=== PATIENT | female | born 2000 | race Caucasian/White ===

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

== ENCOUNTER → 2020-01-02 14:20 | Outpatient (BNVA) | payer MEDICAID, SELFPAY | PROVIDERS: Family Provider Nurse Practitioner; PCP Nurse Practitioner; Visit Provider Obstetrics & Gynecology | DX: O36.0990 Maternal care for other rhesus isoimmunization, unspecified trimester, not applicable or unspecified (principal); O99.340 Other mental disorders complicating pregnancy, unspecified trimester | CPT/HCPCS: 81003; 85027; 86850 ==

== ENCOUNTER → 2020-01-17 13:51 | Outpatient (BNVA) | payer MEDICAID, SELFPAY | PROVIDERS: Family Provider Nurse Practitioner; PCP Nurse Practitioner; Visit Provider Obstetrics & Gynecology | DX: Z01.89 Encounter for other specified special examinations (principal) | CPT/HCPCS: 84315 ==

== ENCOUNTER → 2020-02-03 14:24 | Outpatient (BNVA) | payer MEDICAID, SELFPAY | PROVIDERS: Family Provider Nurse Practitioner; PCP Nurse Practitioner; Visit Provider Obstetrics & Gynecology | DX: O09.893 Supervision of other high risk pregnancies, third trimester (principal); O99.343 Other mental disorders complicating pregnancy, third trimester; O26.893 Other specified pregnancy related conditions, third trimester; Z67.91 Unspecified blood type, Rh negative; O99.89 Other specified diseases and conditions complicating pregnancy, childbirth and the puerperium; R82.71 Bacteriuria; O99.013 Anemia complicating pregnancy, third trimester; A74.9 Chlamydial infection, unspecified | CPT/HCPCS: 84315; 87491 ==

== ENCOUNTER → 2020-02-13 09:55 | Outpatient (BNVA) | payer MEDICAID, SELFPAY | PROVIDERS: Family Provider Nurse Practitioner; PCP Nurse Practitioner; Visit Provider Obstetrics & Gynecology Female Pelvic Medicine and Reconstructive Surgery | DX: Z34.90 Encounter for supervision of normal pregnancy, unspecified, unspecified trimester (principal); O09.893 Supervision of other high risk pregnancies, third trimester | CPT/HCPCS: 80053; 84315 ==

== ENCOUNTER 2020-03-02 13:54 | Outpatient (CLI) | payer MEDICAID, SELFPAY ==
[2020-03-02 14:12] VITALS: RESP 16; TEMP 36.7
--- NOTE | 2020-03-02 14:14 | US_ITS ---
WS: [id number] BIOPHYSICAL PROFILE HISTORY: DECREASED MOVEMENT COMPARISON: None available. Parameters are as follows: Breathin Movement: 2 Tone: 2 Fluid volume: 2 Largest vertical pocket of amniotic fluid 3.4 cm. Cardiac activity 141 bpm. 1. Biophysical profile score: 8/8. US/US OB BPP wo NST 38299 IMPRESSION:
[2020-03-02 14:15] VITALS: BMI 31.6
[2020-03-02 14:51] VITALS: BP 109/66; PULSE 81
[2020-03-02 15:03] VITALS: BP 109/66; PULSE 81; RESP 16; TEMP 36.7
== END 2020-03-02 15:10 | disposition home or self-care (01) ==
LOC: OPOB 13:57 → OBGYN 13:58
PROVIDERS: Family Provider Nurse Practitioner; PCP Nurse Practitioner; Visit Provider Obstetrics & Gynecology
DX: O36.8190 Decreased fetal movements, unspecified trimester, not applicable or unspecified (principal); Z3A.00 Weeks of gestation of pregnancy not specified
CPT/HCPCS: 59025; 76819; 99211

== ENCOUNTER → 2020-03-03 10:50 | Outpatient (BNVA) | payer MEDICAID, SELFPAY | PROVIDERS: Family Provider Nurse Practitioner; PCP Nurse Practitioner; Visit Provider Obstetrics & Gynecology | DX: O09.893 Supervision of other high risk pregnancies, third trimester (principal); O99.013 Anemia complicating pregnancy, third trimester | CPT/HCPCS: 81000; 85027; 87081 ==

== ENCOUNTER 2020-03-24 12:37 | Inpatient (IN) | payer MEDICAID, SELFPAY ==
[2020-03-24] VITALS (30 sets, daily range): BP systolic 0–150; BP diastolic 0–94; PULSE 66–109; RESP 16–18; TEMP 36.9–37.1; BMI 31.9
[2020-03-24] MEDS: lactated ringers 500 ML 999 ML IV (13:55)
[2020-03-24 14:02] LABS: Basophils % 0.2 %; Eosinophils # 0.1 10^3/uL (0.0-0.8); Eosinophils % 0.8 %; Hematocrit 31.2 % (37.0-47.0); Hemoglobin 10.2 g/dL (11.5-15.3); Lymphocytes # 1.5 10^3/uL (1.5-6.5); Mean Corpuscular HGB Conc 32.7 g/dL (30.0-36.0); Mean Corpuscular Hemoglobin 28.2 pg (28.0-34.0); Mean Corpuscular Volume 86.2 fL (81-99); Monocytes # 0.6 10^3/uL (0.2-0.9); Monocytes % 6.4 %; Neutrophils # 7.1 10^3/uL (1.8-8.0); Nucleated Red Blood Cells % 0 %; Platelet Count 338 10^3/cmm (130-400); Red Blood Count 3.62 10^6/uL (4.1-5.3); Red Cell Distribution Width 13.2 % (12.1-15.1); White Blood Count 9.3 10^3/uL (4.5-13.0)
[2020-03-24] MEDS: lactated ringers 1,000 ML 125 ML IV (14:26)
[2020-03-24] MEDS: miSOPROStol 100 mcg tablet 25 MCG VAGINAL (14:34)
[2020-03-24] MEDS: lactated ringers 1,000 ML 999 ML IV (18:22)
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
[2020-03-25] VITALS (97 sets, daily range): BP systolic 0–141; BP diastolic 0–99; PULSE 67–114; RESP 16–20; TEMP 36.6–37.2; O2SAT 97–100
[2020-03-25] MEDS: fentaNYL 50 mcg/mL INJ 2mL IVP (04:37)
[2020-03-25] MEDS: lactated ringers 1,000 ML 999 ML IV (05:00)
--- NOTE | 2020-03-25 06:24 | P.ANES_ITS ---
Anesthesia Procedures Procedure/Date: 03/25/20 epidural Procedure Narrative: epidural complete, bolus given, epidural pump initiated with SHIATSU THERAPIST education given, vitals taken during procedure using OBIX system and satisfactory throughout, patient admits to decrease pain, report of procedure to OB RN Epidural: Time Out Performed: Yes Consents Signed: Procedure Consent Consent: requested by attending/covering physician, from patient, risks and benefits reviewed and patient agrees to proceed Lumbar Level: L3-L4 Epidural position: sitting Epidural procedure: sterile prep of area, 1% lidocaine to numb the area (3 mL), 18 g needle, negative for paresthesia passed, neg for paresthesia, test dose given, 1.5% xylocaine 1:200k epi (5 mL), 0.2% Ropivacaine bolus ml (5 mL), placed PCEA, no systemic response, sterile dressing applied, L.U.D. no apparent complications and 0.2% Ropiavacaine @ mls/hr (13 mL/hr)
[2020-03-25] MEDS: ondansetron 2 mg/ML SDV 2 mL 4 MG IVP ×2 (07:07→09:59)
[2020-03-25] MEDS: dextrose 5%-lactated ringers 1,000 ML 125 ML IV (07:38)
[2020-03-25] MEDS: oxytocin 30 UNIT/500 ML BAG 600 UNIT IV (12:22)
--- NOTE | 2020-03-25 12:54 | P.PCNOB_ITS ---
Delivery Note: Date of delivery: March 25, 2020 Pre-delivery diagnoses: 1. Term at 40-2/7 weeks gestation 2. Mental disorder (depression) complicating in third trimester 3. Rh- status in in third trimester 4. Anemia complicating in third trimester Post-delivery diagnoses: 1. Term at 40-2/7 weeks gestation 2. Mental disorder (depression) complicating - delivered. 3. Rh- status in - delivered. 4. Anemia complicating - delivered. 5. Viable female . Procedure: Spontaneous vaginal delivery Op report anesthesia: Epidural Delivering Physician: Dr. Last Bettencourt Estimated blood loss (mL): 150 Pre-Delivery Course: Patient is a 19-year-old white female 2, para 0-0-1-0 with an LMP of 06/17/2019 and an EDC of 03/23/2020 based on LMP and consistent with ultrasound, which places her at 40-1/7 weeks gestation at the time of admission. She presented to labor and delivery on 03/24/2020 for cervical ripening and ind uction of labor due to term . Cervix was initially closed and thick. She received 1 dose of Cytotec 25 mcg vaginally and proceeded to contract through the afternoon and night. She was making slow cervical change through the night. She had spontaneous rupture of membranes at 02:47 on 03/25. She became more uncomfortable and had epidural placed during the night. By approximately 06:30 she was 90% effaced and 5 cm dilated. She continued to make cervical change and by 09:32 she was found to be completely dilated. monitoring was reassuring during the labor course. Delivery: Patient was initially too numb to push and as a result was allowed to labor down. She started pushing at 10:15 and delivered at 12:18 as a spontaneous vaginal delivery of an occiput anterior female over an intact perineum under epidural anesthesia. Following delivery of the infant's head no nuchal cords were noted. As the shoulder started to deliver it was noted that the right hand was presenting at the right side of the neck. The arm was swept out and the rest the infant then easily delivered with the left shoulder anterior. Infant was placed on the mother's abdomen. Cord was clamped and then cut by the reported father the baby. Infant was left in the care of the waiting nurses. It was spontaneously crying. Cord blood was obtained. Pitocin bolus was started. Placenta delivered intact by simple expression at 12:23. The cervix and vagina were palpated and noted to be intact. The labia were inspected and she was noted to have multiple superficial abrasions scattered over the labia. She had a superficial right periurethral laceration which was hemostatic and required no repair. She also had a laceration extending from the clitoris down to the urethral meatus in the midline. This was bleeding significantly enough that it was repaired with 3-0 Vicryl suture. FINDINGS 1. Viable female weighing 6 pounds 11 ounces (3025 g) with a length of 20-1/2 inches and Apgars of 9 at 1 minute and 10 at 5 minutes. 2. Three-vessel cord with no loops of nuchal cord noted. 3. Normal-appearing placenta with a central cord insertion. Post-Delivery Status: Mother and were left to recover in satisfactory condition. Coding Level of Care Code Acute Facilities Operations Technician for Silvino Monroy
[2020-03-25] MEDS: lanolin oint 7 gm 1 APPLIC TOPICAL (15:39)
[2020-03-25] MEDS: benzocaine-menthol 78 gm Canister 1 SPRAY TOPICAL (15:39)
[2020-03-25] MEDS: TRAMadol 50 mg Tablet PO (17:20)
[2020-03-25] MEDS: docusate sodium 100 mg Capsule PO (17:21)
[2020-03-26 05:45] VITALS: BP 110/74; PULSE 82; RESP 16; TEMP 36.7
[2020-03-26 06:00] LABS: Hematocrit 27.8 % (37.0-47.0); Hemoglobin 8.9 g/dL (11.5-15.3); Mean Corpuscular Hemoglobin 27.8 pg (28.0-34.0); Mean Corpuscular Volume 86.9 fL (81-99); Platelet Count 275 10^3/cmm (130-400); Red Cell Distribution Width 13.3 % (12.1-15.1); White Blood Count 12.8 10^3/uL (4.5-13.0)
[2020-03-26] MEDS: citalopram 20 mg Tablet 10 MG PO (10:02)
[2020-03-26] MEDS: docusate sodium 100 mg Capsule PO (10:02)
[2020-03-26] MEDS: prenatal vitamin Capsule 1 CAP PO (10:03)
[2020-03-26 12:08] VITALS: BP 91/66; PULSE 78; RESP 18
--- NOTE | 2020-03-26 13:03 | P.DS_ITS ---
Discharge Providers Date of Admission: 03/25/20 03:47 Date of Discharge: March 26, 2020 Attending Provider at Admission: Ravindra Quiles MD Attending Provider at Discharge: Toan Michaud MD Primary Care Provider: Lacy Rooney APN Reason for Visit 2 Reason for Visit: Reason For Visit: induction Hospital Course Hospital Course: . day 1, patient reports doing well. She is tolerating a regular diet without nausea vomiting. She denies lightheadedness or dizziness with ambulation. She denies shortness of breath or chest pains. She denies problems with urination. She states her pain is been well controlled. She reports that her bleeding has slowed. She is breast-feeding. She would like to go home today. Physical Exam: See below Plan: Discharge to home. Discharge instructions discussed with patient. Patient to follow-up in the office in approximately 6 weeks for exam. She was instructed to continue with her vitamins and Celexa. Physical Exam Const: COMMON NORMALS: no acute distress, average body habitus, alert and well nourished GENERAL APPEARANCE: well developed ORIENTATION/CONSCIOUSNESS: Yes oriented to person, Yes oriented to place and Yes oriented to time Resp: COMMON NORMALS: normal respiratory effort and clear to auscultation bilaterally AUSCULTATION: clear to auscultation bilaterally Cardio: COMMON NORMALS: regular rate, regular rhythm, No gallops present (Cardio) and No rub (Cardio) RATE: regular rate RHYTHM: regular rhythm GI: COMMON NORMALS: Soft to palpation, non-tender, No hepatosplenomegaly present and no masses (Except for nontender uterus, approximately 2 fingerbreadths below umbilicus.) AUSCULTATION: Yes normoactive bowel sounds PALPATION: Yes Soft to palpation, Yes No hepatosplenomegaly present and No Hernia present : EXTERNAL FEMALE EXAM: No Hernia present Extremity: COMMON NORMALS: no calf tenderness GENERAL: Yes edema (Trace to 1+ lower extremity edema.) Neuro: SENSORIUM/ORIENTATION: Yes alert, Yes oriented to person, Yes oriented to place and Yes oriented to time Psych: COMMON NORMALS: normal affect MOOD & AFFECT: Yes euthymic mood Urinary Catheter Management^: Rahman: Cath Placed During This Visit: yes Urinary Catheter Date of Insertion: 03/25/20 Urinary Catheter Time of Insertion: 06:30 Discharge Data Data Completed and Pending: Labs from last 24 hours 03/26/20 05:45 WBC 12.8 RBC 3.20 L Hgb 8.9 L Hct 27.8 L MCV 86.9 MCH 27.8 L MCHC 32.0 RDW 13.3 Plt Count 275 MPV 10.0 Vitals: Last Vital Signs Temp 98.0 F 03/26/20 05:45 Pulse 78 03/26/20 12:08 Resp 18 03/26/20 12:08 BP 91/66 03/26/20 12:08 Pulse Ox 97 03/25/20 17:15 Discharge Plan Discharge Patient Disposition: Home, Self-Care Condition: Stable Prescriptions: Continued acetaminophen [Tylenol] 325 mg tablet 325 mg PO QID PRN (Reason: headache) RF: 0 citalopram 10 mg tablet 10 mg PO DAILY Qty: 30 RF: 12 1 tab PO DAILY RF: 0 Discontinued ferrous sulfate 325 mg (65 mg iron) tablet 325 mg PO DAILY Qty: 30 RF: 4 No Action (DME) breast pump Device See Rx Instructions .ROUTE .MEDSUPPLY Qty: 1 RF: 0 Discharge Orders: Discharge Order (Routine); Ordered 03/26/20 Ordered By: Last Bettencourt Referrals: Ravindra Quiles MD [Physician] - 05/05/20 10:45 am ( visit) Discharge Diet: Regular Discharge Activity: Resume usual activity Activity Restrictions/Additional Instructions: May take ibuprofen 800 mg 3 times a day as needed Discharge Attestations Time Spent in Discharge Care*: less than 30 min Quality Metrics Clinical Quality Measures During this hospital stay, did patient experience: None Coding Level of Care Code Acute Strap Machine Operator for Silvino Monroy
[2020-03-26 17:04] VITALS: BP 110/64; PULSE 64; RESP 17; TEMP 36.8; O2SAT 98
== END 2020-03-26 15:30 | disposition home or self-care (01) | DRG 807 ==
PROVIDERS: Obstetrics & Gynecology; Admitting Provider Obstetrics & Gynecology; PCP Nurse Practitioner; Visit Provider Obstetrics & Gynecology
DX: O36.0930 Maternal care for other rhesus isoimmunization, third trimester, not applicable or unspecified (principal); Z37.0 Single live birth; O99.344 Other mental disorders complicating childbirth; F32.9 Major depressive disorder, single episode, unspecified; O99.02 Anemia complicating childbirth; D64.9 Anemia, unspecified; O71.82 Other specified trauma to perineum and vulva; Z3A.40 40 weeks gestation of pregnancy
CPT/HCPCS: 12345; 36415; 51702; 59025; 59409; 84315; 85025; 85027; 96375; G0378; G0379; J2405; J2795; J3010

== ENCOUNTER → 2020-05-05 11:30 | Outpatient (BNVA) | payer MEDICAID, SELFPAY | PROVIDERS: PCP Nurse Practitioner; Visit Provider Obstetrics & Gynecology | DX: Z39.2 Encounter for routine postpartum follow-up (principal); Z30.017 Encounter for initial prescription of implantable subdermal contraceptive | CPT/HCPCS: 81025 ==

== ENCOUNTER → 2021-02-09 15:34 | Outpatient (BNVA) | payer MEDICAID, SELFPAY | PROVIDERS: PCP Nurse Practitioner; Visit Provider Emergency Medicine | DX: M79.671 Pain in right foot (principal) | CPT/HCPCS: 73630 ==

== ENCOUNTER 2021-05-05 12:10 | Inpatient (IN) | payer MEDICAID, SELFPAY ==
[2021-05-05] VITALS (9 sets, daily range): BP systolic 75–145; BP diastolic 43–85; PULSE 58–123; RESP 15–18; TEMP 36.4–36.6; O2SAT 94–99; BMI 24.2
--- NOTE | 2021-05-05 12:35 | PC.NURSE ---
unable to complete suicide screening due to pt's erratic behaviors and AMS. pt is placed with 1:1 sitter for her safety.
--- NOTE | 2021-05-05 12:36 | XR_ITS ---
WS: [id number] Portable AP upright chest, 05/05/2021 Clinical Data: reduced breath sounds Comparison: Portable chest, 09/20/2018. Findings: No nodules, masses or effusions are seen. The heart is normal. The pulmonary vascularity is not increased. No pneumonia or pneumothorax is seen. XR/XR chest 1V portable [id number] Impression: Negative chest.
--- NOTE | 2021-05-05 12:36 | ECG_ITS ---
[facility] Test Date: 2021-05-05 Pat Name: Kiersten Woods Department: Room: Gender: Female Special Officer: : 2000 Requested By: Josias Wilde Order Number: [id number] Guerda MD: Karolyn Cohen M.D. Measurements Intervals [place] Rate: 96 P: [place]: QRS: 66 QRSD: 90 T: 0 QT: 360 QTc: 457 Interpretive Statements SINUS TACHYCARDIA NONSPECIFIC T-WAVE ABNORMALITY Compared to ECG 09/20/2018 08:38:31 T-wave abnormality now present Sinus tachycardia no longer present Electronically Signed On 05-06-2021 7:01:42 CDT by Karolyn Cohen M.D. [id number]
--- NOTE | 2021-05-05 12:36 | CT_ITS ---
WS: [id number] CT HEAD TECHNIQUE: Noncontrast CT of the head obtained from the skullbase to the vertex. CLINICAL INFORMATION: psychosis/ veronica. new onset. COMPARISON: None. DLP: 2987.[address] scans at [facility] use at least one of these dose optimization techniques: automat ed exposure control; mA and/or kV adjustment per patient size (includes targeted exams where dose is matched to clinical indication); or iterative reconstruction. FINDINGS: No evidence of intracranial hemorrhage or mass effect. Ventricular system and basal cisterns are neely nt. . No extra-axial fluid collections. No evidence of mass or mass effect. Normal cobos-white differe ntiation. Paranasal sinuses and mastoid air cells are well aerated. .Normal visualized soft tissues. CT/CT head wo con* [id number] IMPRESSION: 1. No evidence of intracranial hemorrhage or mass effect. 2. Normal cobos-white differentiation. 3. No acute intracranial findings.
[2021-05-05] MEDS: haloperidol inj 5 mg/mL INJ 1 mL IM (12:41)
[2021-05-05 13:14] LABS: Basophils % 0.5 %; Hematocrit 38.4 % (37.0-47.0); Hemoglobin 13.3 g/dL (11.5-15.3); Lymphocytes # 1.4 10^3/uL (1.5-6.5); Lymphocytes % 19.1 %; Mean Corpuscular HGB Conc 34.6 g/dL (30.0-36.0); Mean Corpuscular Hemoglobin 29.3 pg (28.0-34.0); Mean Corpuscular Volume 84.6 fL (81-99); Mean Platelet Volume 9.8 fL (7.4-10.4); Monocytes # 0.5 10^3/uL (0.2-0.9); Monocytes % 6.8 %; Neutrophils # 5.47 10^3/uL (1.8-8.0); Neutrophils % 73.3 %; Nucleated Red Blood Cells % 0 %; Platelet Count 370 10^3/cmm (130-400); Red Blood Count 4.54 10^6/uL (4.1-5.3); White Blood Count 7.5 10^3/uL (4.5-13.0)
[2021-05-05] MEDS: diphenhydrAMINE 50 mg/mL SDV 1mL IM (13:22)
[2021-05-05] MEDS: sodium chloride 0.9% 1,000 ML 999 ML IV (13:22)
[2021-05-05] MEDS: LORazepam 2 mg/mL INJ 1 mL IM (13:22)
[2021-05-05 13:36] LABS: HCG, Serum Qual Negative (Negative)
[2021-05-05 13:40] LABS: Alanine Aminotransferase 11 U/L (0-33); Albumin Level 4.9 g/dL (3.5-5.2); Alkaline Phosphatase 59 IU/L (35-105); Anion Gap 16.5 (5-19); Aspartate Amino Transferase 16 U/L (0-32); Blood Urea Nitrogen 11 mg/dL (6-20); Calcium 9.2 mg/dL (8.5-10.5); Carbon Dioxide 23 mmol/L (22-29); Chloride 104 mmol/L (98-107); Creatine Phosphokinase 152 U/L (26-192); Creatinine Clr Calc Pharmacy 128.5176; Globulin 2.4 g/dL (1.3-4.6); Glomerular Filtration Rate 127.5 mL/min (90-130); Glucose 89 mg/dL (65-115); Osmolality Calculated 289 mOsm/kg (285-295); Potassium 3.5 mmol/L (3.5-5.1); Sodium 140 mmol/L (136-145); Total Bilirubin 0.9 mg/dL (0.15-1.2); Total Protein 7.3 g/dL (6.6-8.7)
[2021-05-05 13:44] LABS: Acetaminophen < 5.0 ug/mL (10-30); Alcohol Level < 10 mg/dL (0-10); Salicylate < 0.3 mg/dL (3-10)
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
--- NOTE | 2021-05-05 14:01 | PC.NURSE ---
1312 patient bp low 75 systolic informed physician who states to hold benadryl and ativan. I did not administer these two medications as verbally ordered to withhold per Dr Wilde.
[2021-05-05 14:14] LABS: Thyroid Stimulating Hormone 0.96 uIU/mL (0.27-4.20)
[2021-05-05 15:05] LABS: Urine Appearance Clear (CLEAR); Urine Color Amber (Yellow)
[2021-05-05 15:06] LABS: Add Urine Microscopic? YES; Bacteria Urine 2+ /hpf; Bilirubin Urine Neg (Negative); Blood Urine 3+ (Negative); Glucose Urine UA Norm (Normal); Ketones Urine 1+ (Negative); Leukocyte Esterase Urine Trace (Negative); Mucus Urine 1+ /hpf; Nitrate Urine Negative (Negative); Protein Urine Neg (Negative); Specific Gravity, Urine 1.015 (1.005-1.030); Squamous Epithelial Cell Urine 0-4 /hpf (0-5); Urobilinogen Urine Neg (Negative); WBC Urine 0-4 /hpf (0-5); pH Urine 5 (5-7)
[2021-05-05 15:07] LABS: Add Urine Culture? No
[2021-05-05 15:08] LABS: Amphetamines Screen Urine Negative (Negative); Barbiturates Screen Urine Negative (Negative); Benzodiazepines Screen Urine Negative (Negative); Cocaine Screen Urine Negative (Negative); Opiate Screen Urine Negative (Negative); PCP Screen Urine Negative (Negative); THC Screen Urine Positive (Negative)
--- NOTE | 2021-05-05 15:47 | PC.NURSE ---
report to Ashlie GLORIA in [facility].
--- NOTE | 2021-05-05 18:03 | PC.NURSE ---
Patient is a 20 year old female that presents from the emergency department for SI, and altered mental status. Patient mother says she has not slept more than 6 hours over the past 4 or 5 days, and that her manic symptoms have been worsening over the past 24 hours. Patient presented to the ER in manic state thinking she is the devil and that she is thinking about suicide. Patient had racing thoughts in the ER and was jumping from topic to topic. Patient?s mother states Kiersten has recently lost a friend suddenly and has been dealing with that. Mother says she has a history of mood disorder but nothing significant like this this is the first time she is hallucinating, delusional, and acutely manic. She admits to marijuana use. The patient says she smokes pot a lot. On admission to [facility] patient was drowsy but awoke and answered questions to the best of her ability. Patient was assisted into scrubs.
[2021-05-06 06:00] VITALS: BP 106/67; PULSE 97; RESP 16; TEMP 36.4; O2SAT 99
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
[2021-05-06] MEDS: OLANZapine 5 mg TABLET 2.5 MG PO ×2 (10:41→17:45)
[2021-05-06 11:06] LABS: Add Urine Microscopic? YES; Bilirubin Urine 1+ (Negative); Blood Urine 3+ (Negative); Glucose Urine UA Norm (Normal); Ketones Urine 3+ (Negative); Leukocyte Esterase Urine Trace (Negative); Nitrate Urine Negative (Negative); Protein Urine Neg (Negative); Urine Appearance Clear (CLEAR); Urine Color Yellow (Yellow); Urobilinogen Urine 4 mg/dL (Negative); pH Urine 5 (5-7)
[2021-05-06 11:19] LABS: Add Urine Culture? Yes; Bacteria Urine 4+ /hpf; Mucus Urine 1+ /hpf; RBC Urine 0-4 /hpf (0-2); WBC Urine 0-4 /hpf (0-5)
[2021-05-06] MEDS: nitrofurantoin SR (BID) 100 mg Capsule PO ×2 (12:39→17:45)
[2021-05-06 14:00] VITALS: BP 100/67; PULSE 107; RESP 18; TEMP 36.3; O2SAT 95
[2021-05-06 22:00] VITALS: BP 108/71; PULSE 75; RESP 18; TEMP 37.8; O2SAT 98
--- NOTE | 2021-05-07 03:46 | PC.NURSE ---
PM Assessment Pt denies pain, denies SI/HI, Denies AH/VH, pt has been on the phone, in the dayroom, and went to bed early. Her V/S are WNL, with the exception of her temperature being slightly elevated. It was 100 temporal, since she is positive for UTI, just began treatment, we will continue to observe the patient for any worsening of her symptoms throughout the shift. Pt is resting at this time.
[2021-05-07 06:00] VITALS: BP 101/70; PULSE 93; RESP 17; TEMP 36.6; O2SAT 91
[2021-05-07] MEDS: OLANZapine 5 mg TABLET 2.5 MG PO ×2 (09:31→18:54)
[2021-05-07] MEDS: nitrofurantoin SR (BID) 100 mg Capsule PO ×2 (09:31→18:54)
--- NOTE | 2021-05-07 12:37 | PM.NPN ---
Subjective NPU Subjective: Interval history: Reports significant improvement in racing thoughts, states that she was able to sleep well last night Denies any interval depressive symptoms, denies any interval suicidal ideation Denies any interval psychotic symptoms, no auditory or visual destinations, denies any delusions Reports tolerating medication well with no reports of any medication side effects Per staff report, no interval behavioral disturbances Mental Status Exam MSE Comments: Appropriately groomed and dressed wearing hospital scrubs, calm, cooperative, interactive, good eye contact Psychomotor activity is neither increased nor decreased, no agitation Speech is normal rate, normal volume, clear articulation, not pressured I feel much better, full range, not labile Alert and oriented to person, place, time, situation Memory and concentration are fair per interview Thought process, linear, no flight of ideas, more organized Thought content, no stated delusions, does not appear to be attending to any internal stimuli, no suicidal or homicidal ideation Insight and judgment appear to be improving Vitals/I&O/Wt Last Vital Signs Temp 97.8 F 05/07/21 06:00 Pulse 93 05/07/21 06:00 Resp 17 05/07/21 06:00 BP 101/70 05/07/21 06:00 Pulse Ox 91 05/07/21 06:00 Data NPU : 05/05/21 13:05 05/05/21 13:05 Micro: Microbiology 05/06/21 10:45 Urine Culture - Preliminary Urine,Clean Catch Microbiology 05/06/21 10:45 Urine,Clean Catch Urine Culture - Preliminary A&P Assessment and plan (1) Suicidal ideation: Status: Acute (2) Acute psychosis: Status: Acute Additional A&P Information Improving psychosis, improving mood CONTINUE current medication, continue to monitor Involuntary Hold Information 96 Hour Hold: 96 Hour Involuntary Admission: Yes Attestations NPU Medical Necessity Statement*: Continues to require psychiatric hospitalization for medication stabilization, coordination for safe discharge Coding Level of Care Code Acute [place] [employer] Machine Operator for Silvino Monroy Diagnoses Suicidal ideation R45.851 Acute psychosis F23
[2021-05-07 13:45] VITALS: BP 99/69; PULSE 70; RESP 16; TEMP 36.8; O2SAT 98
[2021-05-07 19:55] VITALS: BP 105/75; PULSE 87; RESP 17; TEMP 37.2; O2SAT 99
[2021-05-08 06:00] VITALS: BP 113/73; PULSE 78; RESP 18; TEMP 36.2; O2SAT 98
[2021-05-08] MEDS: nitrofurantoin SR (BID) 100 mg Capsule PO (08:41)
[2021-05-08] MEDS: OLANZapine 5 mg TABLET 2.5 MG PO (08:41)
--- NOTE | 2021-05-08 09:31 | PM.NDC ---
Diagnoses at Discharge Discharge Diagnosis (1) Suicidal ideation: Status: Acute (2) Acute psychosis: Status: Acute Reason for Visit Reason for Visit: [facility] Hospital Course Hospital Course 20 year old female with reported history of a mood disorder presented to the emergency department with her mother stating that she had not slept for several days and has had worsening psychotic symptoms as well as making delusional statements. Patient was stating that the world is going to end and that she is the devil and it also made suicidal statements. Patient's mother had stated that she has a history of mood disorder but had not been taking any medication. Patient is over 1 year out from delivery of her only child. At the time of initial evaluation, patient continued to be pressured in her behavior speech and thoughts with improvement after initiating olanzapine 2.5 mg twice daily. Patient denied any medication side effects. Patient was also noted to have a urinary tract infection and started on Macrobid twice daily with no complaints. Patient was unable to provide clear episodes of past veronica or hypomania but it is also unclear whether this is purely substance-induced from smoking marijuana with higher THC concentration versus unmasking of veronica related to an underlying mood disorder. Patient participated in unit milieu as well as group sessions with no reports of any behavioral disturbances. She was not suicidal and was not endorsing any psychiatric symptoms at the time of discharge and did not appear to be an imminent threat of harm to self or others. Low to moderate risk of harm to self or others given no current psychotic symptoms and no current suicidal ideation although patient's risk may continue to be elevated if she continues to use substances and/or alcohol leading to disinhibited, unexpected, impulsive behavior. Risk mitigation included psychiatric hospitalization, medication stabilization, recommendation to abstain from use of substances and alcohol as well as the need for compliance with her medication, medication management and substance counseling/treatment in order to further mitigate her risk of harm to self and others. Patient was able to communicate the above recommendations to include abstaining from the use of substances and alcohol and need for compliance with her mental health care and substance treatment follow-up to mitigate her risk. Involuntary Hold Information 96 Hour Hold: 96 Hour Involuntary Admission: Yes Mental Status Exam MSE Comments: Sitting in the day room, polite, interactive, good eye contact, appropriately groomed and dressed wearing hospital scrubs Psychomotor activity is neither increased nor decreased, no agitation Speech is normal rate, normal volume, clear articulation, not pressured Good, full range, smiles appropriately at times during interview, not labile Alert and oriented to person, place, time, situation Memory and concentration are fair per interview Thought process, linear, no flight of ideas, more organized Thought content, no stated delusions, no hallucinations, no suicidal or homicidal ideation Insight and judgment appear to be improving Discharge Data Data Completed and Pending: Completed Studies During Hospitalization Category Date Time Status CT head wo con* [id number] 0450 Stat Cat Scan 05/05/21 12:36 Completed XR chest 1V garo ble [id number] Urgent Exams 05/05/21 12:36 Completed Vitals: Last Vital Signs Temp 97.1 F L 05/08/21 06:00 Pulse 78 05/08/21 06:00 Resp 18 05/08/21 06:00 BP 113/73 05/08/21 06:00 Pulse Ox 98 05/08/21 06:00 Discharge Plan Discharge Patient Disposition: Home Condition: Stable Prescriptions: New olanzapine 5 mg Tablet 2.5 mg PO BID Qty: 60 RF: 0 nitrofurantoin monohyd/m-cryst 100 mg Capsule 100 mg PO BID Qty: 12 RF: 0 Continued Hair,Skin and Nails Tablet 1 tab PO DAILY RF: 0 Discharge Orders: Discharge Order (Routine); Ordered 05/08/21 Ordered By: Lai Bruner Referrals: [facility] [Outside] (Walk-in for intitial assesment Monday through Monday 7:30am to 3pm) Lacy Rooney, FAMILY AND CONSUMER EDUCATION TEACHER [Primary Care Provider] - Discharge Diet: Regular Discharge Activity: Resume usual activity Patient Instructions: Opioid Safety Discharge Attestations NPU Time Spent in Discharge Care*: greater than 30 min Status at Discharge: Cognitive status at discharge: cognitively intact, Behavioral status at discharge: cooperative, Functional status at discharge: independent ambulation Overall status at discharge: patient is back to baseline Coding Level of Care Code Acute Chg FW DC note Diagnoses Suicidal ideation R45.851 Acute psychosis F23
[2021-05-08 09:35] VITALS: BP 113/73; PULSE 78; RESP 18; TEMP 36.2; O2SAT 98
== END 2021-05-08 10:00 | disposition home or self-care (01) | DRG 885 ==
LOC: ER 15:22 → NP 05-06 06:08
PROVIDERS: Admitting Provider Psychiatry & Neurology Psychiatry; Emergency Provider Family Medicine; PCP Nurse Practitioner; Visit Provider Psychiatry & Neurology Psychiatry
DX: F23 Brief psychotic disorder (principal); R45.851 Suicidal ideations; F90.9 Attention-deficit hyperactivity disorder, unspecified type; F41.9 Anxiety disorder, unspecified; H91.91 Unspecified hearing loss, right ear
CPT/HCPCS: 70450; 71045; 80053; 80306; 80307; 81001; 82550; 84443; 84703; 85025; 87086; 93005; 96360; 96372; 99285; J1200; J1630; J2060; J7030

== ENCOUNTER → 2021-05-14 13:51 | Outpatient (BNVA) | payer MEDICAID, SELFPAY | PROVIDERS: PCP Nurse Practitioner; Visit Provider Obstetrics & Gynecology | DX: Z20.2 Contact with and (suspected) exposure to infections with a predominantly sexual mode of transmission (principal) | CPT/HCPCS: 87491; 87591; 87661 ==

== ENCOUNTER 2021-05-23 13:54 | Emergency (ER) | payer MEDICAID, SELFPAY ==
[2021-05-23 13:56] VITALS: BP 127/84; PULSE 93; RESP 18; TEMP 37.2; O2SAT 97; BMI 23.6
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
[2021-05-23 18:17] VITALS: BP 111/70; PULSE 90; RESP 18; O2SAT 96
== END 2021-05-23 18:17 | disposition home or self-care (01) ==
PROVIDERS: Emergency Provider Nurse Practitioner Family; PCP Nurse Practitioner
DX: F51.01 Primary insomnia (principal); F17.290 Nicotine dependence, other tobacco product, uncomplicated
CPT/HCPCS: 99281

== ENCOUNTER → 2021-05-26 09:27 | Outpatient (BNVA) | payer MEDICAID, SELFPAY | PROVIDERS: PCP Nurse Practitioner; Visit Provider Nurse Practitioner | DX: F12.20 Cannabis dependence, uncomplicated (principal); F43.12 Post-traumatic stress disorder, chronic | CPT/HCPCS: 99215 ==

== ENCOUNTER 2021-05-29 15:17 | Emergency (ER) | payer MEDICAID, SELFPAY ==
[2021-05-29 15:20] VITALS: BP 105/69; PULSE 97; RESP 18; TEMP 37.1; O2SAT 97; BMI 23.8
[2021-05-29 15:28] VITALS: BP 105/69; PULSE 92; RESP 18; O2SAT 97
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
[2021-05-29 16:12] VITALS: BP 104/66; PULSE 96; RESP 18; O2SAT 98
[2021-05-29 17:02] VITALS: BP 114/68; PULSE 81; RESP 18; O2SAT 98
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
[2021-05-29 17:56] VITALS: BP 107/69; PULSE 91; RESP 18; O2SAT 95
[2021-05-29 18:07] VITALS: BP 108/71; PULSE 92; RESP 18; O2SAT 99
== END 2021-05-29 18:07 | disposition home or self-care (01) ==
PROVIDERS: Emergency Provider Family Medicine; PCP Nurse Practitioner
DX: S06.0X0A Concussion without loss of consciousness, initial encounter (principal); F41.9 Anxiety disorder, unspecified; F17.290 Nicotine dependence, other tobacco product, uncomplicated; W19.XXXA Unspecified fall, initial encounter
CPT/HCPCS: 70450; 99282

== ENCOUNTER → 2021-06-16 07:03 | Outpatient (BNVA) | payer MEDICAID, SELFPAY | PROVIDERS: PCP Nurse Practitioner; Visit Provider Nurse Practitioner | DX: F43.12 Post-traumatic stress disorder, chronic (principal); F12.20 Cannabis dependence, uncomplicated | CPT/HCPCS: 99214 ==

== ENCOUNTER → 2021-07-14 08:14 | Outpatient (BNVA) | payer MEDICAID, SELFPAY | PROVIDERS: PCP Nurse Practitioner; Visit Provider Nurse Practitioner | DX: F43.12 Post-traumatic stress disorder, chronic (principal); F12.20 Cannabis dependence, uncomplicated | CPT/HCPCS: 99214 ==

== ENCOUNTER → 2021-09-13 08:44 | Outpatient (BNVA) | payer MEDICAID, SELFPAY | PROVIDERS: PCP Nurse Practitioner; Visit Provider Nurse Practitioner | DX: F43.12 Post-traumatic stress disorder, chronic (principal); F12.20 Cannabis dependence, uncomplicated; F12.21 Cannabis dependence, in remission | CPT/HCPCS: 99214 ==

== ENCOUNTER → 2021-10-25 13:57 | Outpatient (BNVA) | payer MEDICAID, SELFPAY | PROVIDERS: PCP Nurse Practitioner; Visit Provider Nurse Practitioner | DX: J02.9 Acute pharyngitis, unspecified (principal) | CPT/HCPCS: 87880 ==

== ENCOUNTER → 2021-12-03 08:18 | Outpatient (BNVA) | payer MEDICAID, SELFPAY | PROVIDERS: PCP Nurse Practitioner; Visit Provider Nurse Practitioner | DX: F12.21 Cannabis dependence, in remission (principal); F43.12 Post-traumatic stress disorder, chronic; F12.20 Cannabis dependence, uncomplicated | CPT/HCPCS: 99214 ==

== ENCOUNTER → 2022-02-23 07:17 | Outpatient (BNVA) | payer MEDICAID, SELFPAY | PROVIDERS: PCP Nurse Practitioner; Visit Provider Nurse Practitioner | DX: F43.12 Post-traumatic stress disorder, chronic (principal); F12.21 Cannabis dependence, in remission | CPT/HCPCS: 99214 ==

== ENCOUNTER 2022-03-12 21:59 | Emergency (ER) | payer MEDICAID, SELFPAY ==
[2022-03-12 22:09] VITALS: BP 114/83; PULSE 90; RESP 14; TEMP 37.3; O2SAT 98
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
[2022-03-12 22:50] LABS: Basophils % 0.3 %; Eosinophils # 0.1 10^3/uL (0.0-0.8); Eosinophils % 0.8 %; Hemoglobin 14.2 g/dL (11.5-15.3); Lymphocytes # 0.8 10^3/uL (0.8-4.8); Lymphocytes % 7.7 %; Mean Corpuscular HGB Conc 34.6 g/dL (30.0-36.0); Mean Corpuscular Hemoglobin 29.6 pg (28.0-34.0); Mean Corpuscular Volume 85.6 fl (81-99); Mean Platelet Volume 9.5 fL (7.4-10.4); Monocytes # 0.5 10^3/uL (0.2-0.9); Monocytes % 4.8 %; Neutrophils # 8.61 10^3/uL (1.8-7.7); Neutrophils % 86.1 %; Nucleated Red Blood Cells % 0 %; Platelet Count 334 10^3/cmm (130-400); Red Blood Count 4.79 10^6/uL (4.1-5.3)
[2022-03-12 23:07] LABS: Alanine Aminotransferase 21 U/L (0-33); Albumin Level 5.1 g/dL (3.5-5.2); Alkaline Phosphatase 71 IU/L (35-105); Anion Gap 17.4 (5-19); Aspartate Amino Transferase 19 U/L (0-32); Blood Urea Nitrogen 15 mg/dL (6-20); C Reactive Protein 6.7 mg/L (0.0-4.9); Calcium 9.4 mg/dL (8.5-10.5); Carbon Dioxide 22 mmol/L (22-29); Chloride 99 mmol/L (98-107); Globulin 3.1 g/dL (1.3-4.6); Glomerular Filtration Rate 155.7 mL/min (90-130); Glucose 96 mg/dL (65-115); Lipase 17 U/L (13-60); Osmolality Calculated 281 mOsm/kg (285-295); Potassium 3.4 mmol/L (3.5-5.1); Sodium 135 mmol/L (136-145); Total Bilirubin 0.7 mg/dL (0.15-1.2); Total Protein 8.2 g/dL (6.6-8.7)
[2022-03-12] MEDS: sodium chloride 0.9% 1,000 ML 999 ML IV (23:08)
[2022-03-12 23:09] VITALS: RESP 15; O2SAT 98
[2022-03-12] MEDS: ondansetron 2 mg/ML SDV 2 mL 4 MG IVP (23:09)
[2022-03-12] MEDS: morphine 4 mg/mL SDV 1 mL IVP (23:09)
[2022-03-12 23:10] LABS: HCG, Serum Qual Negative (Negative)
[2022-03-12 23:15] VITALS: BP 107/68; PULSE 90; RESP 15; O2SAT 98
[2022-03-12 23:15] LABS: Glucose Urine UA Norm (Normal); Ketones Urine 1+ (Negative); Protein Urine 1+ (Negative); Specific Gravity, Urine 1.025 (1.005-1.030); Urine Appearance Clear (CLEAR); Urine Color Yellow (Yellow); pH Urine 5 (5-7)
[2022-03-12 23:16] LABS: Add Urine Microscopic? YES; Bilirubin Urine 1+ (Negative); Blood Urine 3+ (Negative); Leukocyte Esterase Urine Negative (Negative); Nitrate Urine Negative (Negative); Urobilinogen Urine Norm (Negative)
[2022-03-12 23:17] LABS: Add Urine Culture? Yes; Bacteria Urine 2+ /hpf; Mucus Urine 2+ /hpf; RBC Urine 25-40 /hpf (0-2); WBC Urine 0-4 /hpf (0-5)
[2022-03-12] MEDS: cefTRIAXone 1,000 MG in sodium chloride 0.9% (plus) 50 ML 100 MG IV (23:45)
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
[2022-03-13 01:22] VITALS: BP 106/67; PULSE 90; RESP 15; O2SAT 97
[2022-03-13] MEDS: ondansetron 2 mg/ML SDV 2 mL 4 MG IVP (01:56)
[2022-03-13] MEDS: ketorolac 30 mg/mL INJ 15 MG IVP (02:41)
[2022-03-13] MEDS: metoclopramide 5 mg/mL SDV 2 mL 10 MG IVP (03:02)
[2022-03-13] MEDS: haloperidol inj 5 mg/mL INJ 1 mL 2 MG IVP (03:02)
[2022-03-13 03:13] VITALS: BP 116/67; PULSE 96; RESP 16; O2SAT 100
== END 2022-03-13 03:15 | disposition home or self-care (01) ==
PROVIDERS: Emergency Provider Emergency Medicine; PCP Nurse Practitioner
DX: K52.9 Noninfective gastroenteritis and colitis, unspecified (principal)
CPT/HCPCS: 74176; 80053; 81001; 83690; 84703; 85025; 86140; 87086; 96365; 96375; 96376; 99284; J0696; J1630; J1885; J2270; J2405; J2765; J7030

== ENCOUNTER → 2022-05-11 15:41 | Outpatient (BNVA) | payer MEDICAID, SELFPAY | PROVIDERS: PCP Nurse Practitioner; Visit Provider Family Medicine | DX: N92.6 Irregular menstruation, unspecified (principal) | CPT/HCPCS: 81025 ==

== ENCOUNTER 2022-11-04 11:40 | Outpatient (CLI) | payer MEDICAID, SELFPAY ==
[2022-11-04] VITALS (14 sets, daily range): BP systolic 90–108; BP diastolic 51–68; PULSE 71–100; RESP 16; TEMP 35.9–36.2; BMI 29.8
[2022-11-04 13:26] LABS: Add Urine Microscopic? YES; Bilirubin Urine Neg (Negative); Blood Urine 3+ (Negative); Glucose Urine UA Norm (Normal); Ketones Urine 1+ (Negative); Leukocyte Esterase Urine Trace (Negative); Nitrate Urine Negative (Negative); Protein Urine Trace (Negative); Specific Gravity, Urine 1.015 (1.005-1.030); Urine Appearance Hazy (CLEAR); Urine Color Yellow (Yellow); Urobilinogen Urine 1 mg/dL (Negative); pH Urine 7 (5-7)
[2022-11-04 13:27] LABS: RBC Urine 25-40 /hpf (0-2); WBC Urine 0-4 /hpf (0-5)
[2022-11-04 13:28] LABS: Add Urine Culture? No; Bacteria Urine 1+ /hpf; Mucus Urine 2+ /hpf; Squamous Epithelial Cell Urine 15-25 /hpf (0-5)
[2022-11-04] MEDS: acetaminophen 500 mg Tablet 1000 MG PO (13:46)
[2022-11-04 14:41] LABS: Urine Appearance Hazy (CLEAR); Urine Color Yellow (Yellow); pH Urine 6.5 (5-7)
[2022-11-04 14:42] LABS: Bilirubin Urine 1+ (Negative); Blood Urine 3+ (Negative); Glucose Urine UA Norm (Normal); Ketones Urine Negative (Negative); Leukocyte Esterase Urine Negative (Negative); Nitrate Urine Negative (Negative); Protein Urine Neg (Negative); RBC Urine 25-40 /hpf (0-2); Urobilinogen Urine 1 mg/dL (Negative)
[2022-11-04 14:43] LABS: Bacteria Urine TRACE /hpf; Mucus Urine 2+ /hpf; Squamous Epithelial Cell Urine 0-4 /hpf (0-5); WBC Urine 0-4 /hpf (0-5)
[2022-11-04 14:46] LABS: Add Urine Culture? Yes
--- NOTE | 2022-11-04 15:43 | US_ITS ---
WS: [id number] RENAL ULTRASOUND HISTORY: blood in urine; abdominal and back pain COMPARISON: Prior CT 03/13/2022 TECHNIQUE: 2-D and color Doppler imaging of the kidney submitted. Right kidney: 13.4 cm x 7.0 cm x 4.5 cm. Normal size and echogenicity. No hydronephrosis or mass. Extrarenal pelvis. Also noted on a prior CT. Left kidney: 12.8 cm x 4.3 cm x 5.1 cm. Normal echogenicity and size. No hydronephrosis or mass. Small extrarenal pelvis. Also noted on a lindy or CT. Aorta: Normal. Urinary Bladder: Normal distention. Bilateral ureteral jets are identified. US/US renal BI* [id number] IMPRESSION: Normal renal ultrasound.
[2022-11-04] MEDS: NIFEdipine 10 mg Capsule PO (15:51)
--- NOTE | 2022-11-04 16:24 | PM.MISC ---
Miscellaneous Note Purpose of Documentation: Document evaluation of in OB triage Note: Kiersten is a 22-year-old 3 para 1-0-1-1 with an estimated gestational age of 30 weeks who presents to the hospital complaining of some abdominal pain and some intermittent contractions. As result she was placed on the monitor where her heart tones demonstrated reactivity throughout her stay in the hospital. She did demonstrate some intermittent contractions. Urinalysis performed demonstrated 3+ urine blood some red blood cells and 0-4 white blood cells with 15-25 epithelial cells. There is also 1+ urine bacteria. Because of the contamination I elected to have a straight cath performed to obtain his second urinalysis. It also demonstrated 3+ blood but 0-4 white blood cells and only trace bacteria. Because of the blood I elected to have an ultrasound performed of her kidneys and bladder. Pulmonary findings indicate there were no obvious pathology noted. The patient's contractions became less frequent and became less painful with hydration and Tylenol. I also gave her nifedipine 10 mg x 1. Her cervix was checked and found to be a dimple, and 3 hours later was also still found to be a dimple. As result the patient was discharged with a follow-up in my office early next week. I also discussed with her the importance of returning if her contractions became more severe or more frequent.
== END 2022-11-04 16:45 | disposition home or self-care (01) ==
LOC: OPOB 11:41 → OBGYN 11:42
PROVIDERS: PCP Nurse Practitioner; Visit Provider Family Medicine
DX: O26.899 Other specified pregnancy related conditions, unspecified trimester (principal); Z3A.00 Weeks of gestation of pregnancy not specified
CPT/HCPCS: 59025; 76770; 81001; 87086; 99211

== ENCOUNTER 2023-01-09 12:02 | Outpatient (CLI) | payer MEDICAID, SELFPAY ==
[2023-01-09 12:18] VITALS: TEMP 35.9
[2023-01-09 12:20] VITALS: BP 107/61; PULSE 114
[2023-01-09 12:35] VITALS: BP 96/56; PULSE 103
[2023-01-09 12:50] VITALS: BMI 31.6
[2023-01-09 14:07] VITALS: BP 94/56; PULSE 85
[2023-01-09 14:22] VITALS: BP 96/57; PULSE 77
== END 2023-01-09 14:55 | disposition home or self-care (01) ==
LOC: OPOB 12:08 → OBGYN 12:10
PROVIDERS: PCP Nurse Practitioner; Visit Provider Family Medicine
DX: O47.9 False labor, unspecified (principal); Z3A.00 Weeks of gestation of pregnancy not specified
CPT/HCPCS: 59025; 99211

== ENCOUNTER 2023-01-10 02:19 | Inpatient (IN) | payer MEDICAID, SELFPAY ==
[2023-01-10] VITALS (23 sets, daily range): BP systolic 84–140; BP diastolic 50–75; PULSE 69–109; RESP 15–18; TEMP 36.6–36.7; O2SAT 97; BMI 31.6
[2023-01-10 02:46] LABS: Basophils % 0.2 %; Eosinophils # 0.1 10^3/uL (0.0-0.8); Eosinophils % 0.5 %; Hematocrit 34.8 % (37.0-47.0); Hemoglobin 11.1 g/dL (11.5-15.3); Lymphocytes # 2.4 10^3/uL (0.8-4.8); Lymphocytes % 14.1 %; Mean Corpuscular HGB Conc 31.9 g/dL (30.0-36.0); Mean Corpuscular Hemoglobin 27.8 pg (28.0-34.0); Mean Corpuscular Volume 87.2 fl (81-99); Mean Platelet Volume 10.2 fL (7.4-10.4); Monocytes % 5.8 %; Neutrophils # 13.29 10^3/uL (1.8-7.7); Neutrophils % 78.7 %; Nucleated Red Blood Cells % 0 %; Platelet Count 483 10^3/cmm (130-400); Red Blood Count 3.99 10^6/uL (4.1-5.3); Red Cell Distribution Width 12.7 % (12.1-15.1); White Blood Count 16.9 10^3/uL (4.0-10.0)
[2023-01-10] MEDS: dextrose 5%-lactated ringers 1,000 ML 125 ML IV (02:49)
[2023-01-10 03:13] LABS: Nitrazine Paper, PH Negative
[2023-01-10] MEDS: ondansetron 2 mg/ML SDV 2 mL 4 MG IVP (04:29)
[2023-01-10] MEDS: oxytocin 30 UNIT/500 ML BAG 600 UNIT IV (04:37)
--- NOTE | 2023-01-10 04:49 | PM.DELIVERY ---
Delivery Note: Date of delivery: January 10, 2023 Pre-delivery diagnoses: 22-year-old 3 para 1-0-1-1 at 39 weeks estimated gestational age presenting in active labor Post-delivery diagnoses: Status post vacuum-assisted vaginal delivery Procedure: Vacuum-assisted vaginal delivery Delivering Physician: Ricky Reece Estimated blood loss (mL): 75 Pre-Delivery Course: The patient presented to the hospital in active labor. She was dilated to 7 cm. She progressed to complete without difficulty. Delivery: DELIVERY: The patient progressed to complete without difficulty. After pushing for about 20 to 30 minutes, the patient became inconsolable. Despite my efforts to try and get her to focus she was having difficulty pushing with any consistency. I could tell that the baby will build to move down easily with some assistance. As result I applied a Kiwi vacuum to the baby's scalp at a +2 station. After about 20 seconds of the Kiwi vacuum being applied with suction the baby was moved to position where the suction was removed and she was able to deliver the baby. There were no pop offs. There was only 1 application of the Kiwi vacuum. She delivered a male with a weight of 7 pounds 11 ounces with Apgars of 8, 9. The baby was delivered from the MAVIS position and placed on the mother's abdomen. The cord was then clamped and cut. There was a nuchal cord x1 and a body cord x1. The baby was delivered through the cord. There was no meconium. The placenta and 3 vessel cord were delivered intact shortly thereafter. The perineum and vaginal vault were carefully examined. No lacerations were noted. Both the mother and the baby were in stable condition. History History History 2 Term 1 0 Miscarriages/Ectopic 1 Living Children 1 A&P Assessment and plan (1) Vacuum-assisted vaginal delivery: I anticipate the patient will have routine care. (2) 39 weeks gestation of : Coding Level of Care Code Acute Code for Chg Fwd Diagnoses Vacuum-assisted vaginal delivery Z37.9 39 weeks gestation of Z3A.39
--- NOTE | 2023-01-10 05:01 | PM.OPHPUD ---
Labor & Delivery H&P Update Date of Procedure: January 10, 2023 Date H&P Performed: 01/05/23 Changes to previous documentation: Cervix changed to 7 cm dilated. Admission Diagnosis: 22-year-old 3 para 1-0-1-1 at 39 weeks estimated gestational age presenting in active labor. Preop diagnosis: labor pain Planned procedure: Vaginal delivery Other information: The patient is then otherwise healthy 39-week female who had been seen the day prior with contractions but without cervical change. Through the night she continued to have contractions, and presented to be reevaluated and found to have consistent contractions with a cervix at 7 cm dilated. Her has been relatively unremarkable. Her blood type is O-. Her antibody screen is negative. She is rubella nonimmune. Her Pap smear was abnormal. She was positive for THC. Her glucose screen was negative. She was GBS negative. The remainder of her infectious disease profile was within normal limits.
[2023-01-10] MEDS: docusate sodium 100 mg Capsule PO ×2 (09:32→19:35)
[2023-01-10] MEDS: ibuprofen 800 mg tablet PO ×3 (09:32→21:29)
[2023-01-10] MEDS: prenatal vitamin Capsule 1 CAP PO (09:32)
[2023-01-10 19:03] LABS: Hematocrit 28.9 % (37.0-47.0); Hemoglobin 9.6 g/dL (11.5-15.3); Mean Corpuscular HGB Conc 33.2 g/dL (30.0-36.0); Mean Corpuscular Hemoglobin 28.7 pg (28.0-34.0); Mean Corpuscular Volume 86.5 fl (81-99); Mean Platelet Volume 9.8 fL (7.4-10.4); Platelet Count 424 10^3/cmm (130-400); Red Blood Count 3.34 10^6/uL (4.1-5.3); Red Cell Distribution Width 12.7 % (12.1-15.1); White Blood Count 17.9 10^3/uL (4.0-10.0)
[2023-01-10] MEDS: benzocaine-menthol 78 gm Canister 1 SPRAY TOPICAL (21:29)
[2023-01-10] MEDS: lanolin oint 7 gm 1 APPLIC TOPICAL (21:29)
[2023-01-11 04:12] VITALS: BP 98/61; PULSE 77; RESP 18; TEMP 36.4
--- NOTE | 2023-01-11 07:43 | PM.OBGYDC ---
Discharge Providers [employer] Date of Admission: 01/10/23 02:19 Date of Discharge: 01/11/23 Attending Provider at Admission: Ricky Reece MD Attending Provider at Discharge: Ricky Reece MD Primary Care Provider: Lacy Rooney APN Diagnoses at Discharge Discharge Diagnosis (1) Vacuum-assisted vaginal delivery: Status: Acute (2) 39 weeks gestation of : Status: Acute Reason for Visit Reason for Visit: CONTRACTIONS Hospital Course Hospital Course The patient presented to the hospital 7 cm dilated. She progressed to complete without difficulty. She is able to push for several minutes, but then had difficulty pushing due to the pain. A vacuum assist was used to help her easily deliver the infant. course was unremarkable. She breast-fed well. Her bleeding was within normal limits. Her pain was well controlled. Information Peripartum Data: Delivery Method: Vaginal Physical Exam Narrative: The patient is alert. She appears comfortable. Her heart has a regular rate and rhythm with no murmurs appreciated. Lungs are clear to auscultation bilaterally. Her fundus is firm and below the umbilicus. History History History 2 Term 1 0 Miscarriages/Ectopic 1 Living Children 1 Discharge Data Studies Completed and Pending Laboratory Results WBC 17.9 10^3/uL (4.0-10.0) H 01/10/23 18:55 RBC 3.34 10^6/uL (4.1-5.3) L 01/10/23 18:55 Hgb 9.6 g/dL (11.5-15.3) L 01/10/23 18:55 Hct 28.9 % (37.0-47.0) L 01/10/23 18:55 MCV 86.5 fl (81-99) 01/10/23 18:55 MCH 28.7 pg (28.0-34.0) 01/10/23 18:55 MCHC 33.2 g/dL (30.0-36.0) 01/10/23 18:55 RDW 12.7 % (12.1-15.1) 01/10/23 18:55 Plt Count 424 10^3/cmm (130-400) H 01/10/23 18:55 MPV 9.8 fL (7.4-10.4) 01/10/23 18:55 Neut % (Auto) 78.7 % 01/10/23 02:15 Lymph % (Auto) 14.1 % 01/10/23 02:15 [place] % (Auto) 5.8 % 01/10/23 02:15 Eos % (Auto) 0.5 % 01/10/23 02:15 Baso % (Auto) 0.2 % 01/10/23 02:15 Neut # (Auto) 13.29 10^3/uL (1.8-7.7) H 01/10/23 02:15 Lymph # (Auto) 2.4 10^3/uL (0.8-4.8) 01/10/23 02:15 [place] # (Auto) 1.0 10^3/uL (0.2-0.9) H 01/10/23 02:15 Eos # (Auto) 0.1 10^3/uL (0.0-0.8) 01/10/23 02:15 Baso # (Auto) 0.0 10^3/uL (0.0-0.1) 01/10/23 02:15 Nucleated RBC % (auto) 0 % 01/10/23 02:15 Nucleated RBCs # 0.0 /100WBC 01/10/23 02:15 Vitals Last Vital Signs Temp 97.6 F 01/11/23 04:12 Pulse 77 01/11/23 04:12 Resp 18 01/11/23 04:12 BP 98/61 01/11/23 04:12 Pulse Ox 97 01/10/23 22:00 O2 Del Method 01/10/23 22:00 Discharge Plan Discharge Patient Disposition: Home Prescriptions: New ibuprofen 800 mg Tablet 800 mg PO TID Qty: 45 0RF Continued ferrous sulfate 325 mg (65 mg iron) Tablet 325 mg PO DAILY Vitamin C 100 mg Tablet 100 mg PO DAILY capsule 1 cap PO DAILY Discharge Orders: Discharge Order (Routine); Ordered 01/11/23 Ordered By: Ricky Reece Referrals: Ricky Reece MD [Physician] - 6 Weeks Discharge Diet: Usual diet Discharge Activity: Limit activity as instructed Patient Instructions: Your Baby (GEN), Expression, Collection and Storage of Breast Milk (GEN), How to Hold and Breastfeed Your Baby (GEN), and Nipple Soreness (GEN), and Breast Engorgement (GEN), and Plugged Ducts (GEN), How to Increase Your Milk Supply (GEN), and Your Diet (GEN), OB Discharge Report, OB Food/Drug Interaction Guide, OB Care at Home, Opioid Safety, OB Home Care, OB Proud Parent Packet, OB Vaginal Deliveries Discharge Attestations [employer] Time Spent in Discharge Care*: less than 30 min Status at Discharge: Cognitive status at discharge: cognitively intact, Behavioral status at discharge: cooperative, Coding Level of Care Code Acute Code for Chg Fwd Diagnoses Vacuum-assisted vaginal delivery Z37.9 39 weeks gestation of Z3A.39
[2023-01-11] MEDS: prenatal vitamin Capsule 1 CAP PO (09:37)
[2023-01-11] MEDS: ibuprofen 800 mg tablet PO (09:37)
[2023-01-11] MEDS: docusate sodium 100 mg Capsule PO (09:37)
[2023-01-11 09:40] VITALS: BP 97/63; PULSE 74; RESP 16; TEMP 36.8
[2023-01-11 11:30] VITALS: BP 97/63; PULSE 74; RESP 16; TEMP 36.8
== END 2023-01-11 10:46 | disposition home or self-care (01) | DRG 807 ==
LOC: OPOB 02:19 → OBGYN 02:19
PROVIDERS: Admitting Provider Family Medicine; PCP Nurse Practitioner; Visit Provider Family Medicine
DX: O69.2XX0 Labor and delivery complicated by other cord entanglement, with compression, not applicable or unspecified (principal); Z37.0 Single live birth; Z3A.39 39 weeks gestation of pregnancy
CPT/HCPCS: 12345; 36415; 59025; 59409; 83986; 85025; 85027; 96374; 99211; J2405; J2590; J7121

== ENCOUNTER 2024-07-16 06:08 | Outpatient (CLI) | payer MEDICAID, SELFPAY ==
--- NOTE | 2024-07-16 06:15 | US_ITS ---
WS: [id number] RIGHT UPPER QUADRANT ULTRASOUND HISTORY: RUQ PAIN COMPARISON: 11/04/2022, CT 03/13/2022 Liver: 15.9 cm in length. Normal size liver and echogenicity. No bile duct dilatation or mass. Portal Vein: Normal hepatopetal flow with monophasic waveform. Gallbladder: Normally distended gallbladder with no stones or wall thickening. CBD: 0.3 cm Pancreas: Normal size and echogenicity. Right kidney: 11.9 cm in length. Normal size and echogenicity. No hydronephrosis or mass. Aorta and IVC: Unremarkable abdominal aorta and IVC. No ascites. Focal area of increased echogenicity in the RIGHT suprarenal location. This is of increased echogenic ity measuring 4.1 x 5.0 x 3.5 cm. This is most consistent with a fat-containing adrenal neoplasm. Thi s was also described on a prior CT of 03/13/2022. US/US abdomen limited [id number] IMPRESSION: 1. Normal gallbladder. 2. No hepatic duct dilatation. 3. RIGHT suprarenal echogenic mass measuring 4.1 x 5.0 x 3.5 cm. Due to the fa t content this is most consistent with an adrenal myolipoma. Also described on 03/13/2022. Not increased in size.
== END 2024-07-16 06:09 | disposition home or self-care (01) ==
LOC: RAD 06:08
PROVIDERS: PCP Nurse Practitioner; Visit Provider Nurse Practitioner Family
DX: D35.01 Benign neoplasm of right adrenal gland (principal); R10.9 Unspecified abdominal pain; R19.7 Diarrhea, unspecified
CPT/HCPCS: 76705

== ENCOUNTER 2024-11-21 08:19 | Outpatient (CLI) | payer MEDICAID, SELFPAY ==
[2024-11-21 08:15] VITALS: BMI 26.0
[2024-11-21 08:32] VITALS: BP 102/58; PULSE 82
[2024-11-21] MEDS: sodium chloride 0.9% 1,000 ML 999 ML IV (09:02)
[2024-11-21] MEDS: ondansetron 2 mg/ML SDV 2 mL 4 MG IVP (09:02)
[2024-11-21 09:03] VITALS: BP 102/55; PULSE 71
[2024-11-21 09:06] LABS: Bilirubin Urine Negative (Negative); Blood Urine 3+ (Negative); Glucose Urine UA Negative (Normal); Ketones Urine 1+ (Negative); Leukocyte Esterase Urine 2+ (Negative); Nitrate Urine Negative (Negative); Protein Urine Trace (Negative); Specific Gravity, Urine 1.029 (1.005-1.030); Urine Appearance Cloudy (CLEAR); Urine Color Dark Yellow (Yellow); pH Urine 5.5 (5-7)
[2024-11-21 09:08] LABS: Bacteria Urine 1+ /hpf; Hyaline Casts Urine 1.65 /lpf
[2024-11-21 09:14] LABS: Add Urine Culture? Yes
[2024-11-21 09:33] VITALS: BP 87/51; PULSE 66
[2024-11-21 10:03] VITALS: BP 82/46; PULSE 60
== END 2024-11-21 10:20 | disposition home or self-care (01) ==
LOC: OPOB 08:20 → OBGYN 08:29
PROVIDERS: PCP Nurse Practitioner; Visit Provider Family Medicine
DX: O21.9 Vomiting of pregnancy, unspecified (principal); Z3A.00 Weeks of gestation of pregnancy not specified; R19.7 Diarrhea, unspecified
CPT/HCPCS: 36415; 81001; 87086; 96374; 99211; J2405; J7030

== ENCOUNTER 2024-12-27 09:00 | Oncology outpatient (recurring) (ONCR) | payer MEDICAID, SELFPAY ==
[2024-12-27] MEDS: rho(d) immune globulin 1,500 unit Syringe 1500 UNIT IM (09:18)
[2024-12-27 09:26] VITALS: BP 98/63; PULSE 85; RESP 17; TEMP 36.7; O2SAT 99
== END 2025-01-03 23:59 | disposition home or self-care (01) ==
LOC: ONCMED 09:02
PROVIDERS: PCP Nurse Practitioner; Visit Provider Family Medicine
DX: O26.892 Other specified pregnancy related conditions, second trimester (principal); Z67.41 Type O blood, Rh negative; Z79.899 Other long term (current) drug therapy
CPT/HCPCS: 96372; J2790

== ENCOUNTER 2025-01-08 20:58 | Outpatient (CLI) | payer MEDICAID, SELFPAY ==
[2025-01-08 20:58] VITALS: BMI 27.3
[2025-01-08 21:15] VITALS: BP 104/61; PULSE 85
[2025-01-08 22:16] LABS: Bilirubin Urine Negative (Negative); Blood Urine 1+ (Negative); Glucose Urine UA Negative (Normal); Ketones Urine Negative (Negative); Leukocyte Esterase Urine 1+ (Negative); Nitrate Urine Negative (Negative); Protein Urine Negative (Negative); Specific Gravity, Urine 1.003 (1.005-1.030); Urine Appearance Clear (CLEAR); Urine Color Yellow (Yellow); Urobilinogen Urine 0.2 mg/dL (Negative)
[2025-01-08 22:33] LABS: Add Urine Microscopic? YES; Bacteria Urine TRACE /hpf; RBC Urine 0-4 /hpf (0-2); Squamous Epithelial Cell Urine 0-4 /hpf (0-5); UA Manual Slide Review YES; UA Slide Review UA Slide Review Perf; WBC Urine 0-5 /hpf (0-5)
[2025-01-09 00:08] VITALS: TEMP 36
[2025-01-09 00:09] VITALS: BP 94/67; PULSE 77
[2025-01-09 00:25] VITALS: BP 94/67; PULSE 77; RESP 16; TEMP 36.5; O2SAT 99
--- NOTE | 2025-01-09 00:40 | PC.NURSE ---
This RN attempted to call Dr. Reece at [phone], [phone]. MD not able to be reached due to phone service used being down. This RN then contacted Dr. Evangelista from [facility] for further orders on patient.
== END 2025-01-09 00:29 | disposition home or self-care (01) ==
LOC: OPOB 21:02 → OBGYN 21:03
PROVIDERS: PCP Nurse Practitioner; Visit Provider Family Medicine
DX: O26.899 Other specified pregnancy related conditions, unspecified trimester (principal); Z3A.00 Weeks of gestation of pregnancy not specified; R10.9 Unspecified abdominal pain
CPT/HCPCS: 59025; 81001; 83986; 99211

== ENCOUNTER 2025-03-14 03:57 | Inpatient (IN) | payer MEDICAID, SELFPAY ==
[2025-03-14] VITALS (51 sets, daily range): BP systolic 86–174; BP diastolic 50–84; PULSE 67–97; RESP 16–17; TEMP 36.2–36.7; O2SAT 93–100; BMI 28.8
[2025-03-14 02:57] LABS: Actim Prom Positive
[2025-03-14 03:13] LABS: Basophils % 0.3 %; Eosinophils # 0.1 10^3/uL (0.0-0.8); Eosinophils % 0.6 %; Hematocrit 34.7 % (36-47); Lymphocytes % 17.5 %; Mean Corpuscular HGB Conc 33.1 g/dL (30-55); Mean Corpuscular Hemoglobin 29.2 pg (27-33); Mean Corpuscular Volume 88.1 fl (85-98); Monocytes # 0.6 10^3/uL (0.2-0.9); Monocytes % 5.4 %; Neutrophils # 8.81 10^3/uL (1.8-7.7); Neutrophils % 75.5 %; Nucleated Red Blood Cells % 0 %; Platelet Count 315 10^3/cmm (157-399); Red Blood Count 3.94 10^6/uL (3.85-5.65); Red Cell Distribution Width 12.4 % (12.1-15.1); White Blood Count 11.67 10^3/uL (3.29-11.43)
[2025-03-14 03:26] LABS: Amphetamines Screen Urine Negative (Negative); Barbiturates Screen Urine Negative (Negative); Benzodiazepines Screen Urine Negative (Negative); Cocaine Screen Urine Negative (Negative); Opiate Screen Urine Negative (Negative); PCP Screen Urine Negative (Negative); THC Screen Urine Negative (Negative)
[2025-03-14] MEDS: ampicillin 2,000 MG in sodium chloride 0.9% (plus) 50 ML 100 MG IV (03:38)
[2025-03-14] MEDS: dextrose 5%-lactated ringers 1,000 ML 125 ML IV (03:43)
[2025-03-14] MEDS: sodium chloride 0.9% 1,000 ML 999 ML IV ×2 (04:21→05:24)
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
[2025-03-14] MEDS: oxytocin 30 UNIT/500 ML BAG 600 UNIT IV (06:27)
--- NOTE | 2025-03-14 06:45 | PM.OPHPUD ---
Labor & Delivery H&P Update Date of Procedure: March 14, 2025 Date H&P Performed: 03/13/25 Changes to previous documentation: The patient arrived to the hospital in active labor with cervical change with her cervix being dilated to a 4. Her cervix was out of 2 in the office. Admission Diagnosis: 24-year-old 4 para 2-0-1-2 at 39 weeks estimated stational age in active labor Preop diagnosis: intrauterine Other information: The patient is a 24-year-old 39-week female who presented in active labor. Her has been unremarkable overall. She has had consistent care. Her labs were relatively unremarkable. Her blood type is O-. Her antibody screen was negative. She is GBS positive. She is rubella nonimmune. She was positive for THC the remainder of her infectious disease profile was within normal limits. She began having labor few hours prior to arriving at the hospital. Her contractions became more painful and more frequent. Related Problem List Diagnoses (1) Positive GBS test: (2) 39 weeks gestation of : A&P Assessment and plan (1) Positive GBS test: Status: Acute (2) 39 weeks gestation of : It is anticipated the patient will have routine labor and vaginal delivery. Status: Acute PDMP PDMP Reviewed: Not Reviewed
--- NOTE | 2025-03-14 06:48 | P.PCNOB_ITS ---
Delivery Note: Date of delivery: March 14, 2025 Pre-delivery diagnoses: 24-year-old 4 para 2-0-1-2 at 39 weeks estimated gestational age in active labor Post-delivery diagnoses: Status post precipitous vaginal delivery Procedure: Precipitous vaginal delivery Delivering Physician: Ricky Reece Estimated blood loss (mL): 75 Delivery: DELIVERY: The patient was 5 m dilated. She elected to have an epidural. While she was sitting getting epidural, she felt like she had to have a break, she lay down immediately started . At that point I was contacted. She delivered a baby with a weight of 6 pounds 8 ounces with Apgars of 7, 9. The baby was delivered from the vertex position and placed on the mother's abdomen. The cord was then clamped and cut. There was no nuchal cord. There was no m econium. I then arrived and delivered the placenta and three-vessel cord. The perineum and vaginal vault were carefully examined. Multiple superficial first- degree lacerations were noted. None were bleeding. Both the mother and the baby were in stable condition. Post-Delivery Status: Good History History History 4 Term 2 0 Miscarriages/Ectopic 1 Living Children 2 A&P Assessment and plan (1) 39 weeks gestation of : I anticipate routine care. Because she is GBS positive and received an adequate antibiotics her will require 48-hour stay. (2) Vaginal delivery: (3) Positive GBS test: PDMP PDMP Reviewed: Not Reviewed Coding Level of Care Code Acute Code for Chg Fwd Diagnoses 39 weeks gestation of Z3A.39 Vaginal delivery O80 Positive GBS test B95.1
[2025-03-14] MEDS: ibuprofen 800 mg tablet PO ×3 (08:05→22:30)
[2025-03-14] MEDS: HYDROcodone-acetaminophen 5-325 mg Tablet PO (08:05)
[2025-03-14] MEDS: lanolin oint 7 gm 1 APPLIC TOPICAL (08:06)
[2025-03-14] MEDS: docusate sodium 100 mg Capsule PO ×2 (08:06→17:24)
[2025-03-14] MEDS: PRENATAL VIT NO.130/IRON/FOLIC 1 EACH TABLET PO (08:06)
[2025-03-14] MEDS: benzocaine-menthol 78 gm Canister 1 SPRAY TOPICAL (08:07)
--- NOTE | 2025-03-14 13:14 | PC.NURSE ---
ambulated to OB12 for routine post stay. oriented to room/call light. proud parent pack and feeding log discussed.
[2025-03-14 20:18] LABS: Mean Corpuscular HGB Conc 33.1 g/dL (30-55); Mean Corpuscular Hemoglobin 29.3 pg (27-33); Mean Corpuscular Volume 88.4 fl (85-98); Mean Platelet Volume 9.9 fL (7.4-10.4); Platelet Count 282 10^3/cmm (157-399); Red Blood Count 3.28 10^6/uL (3.85-5.65); Red Cell Distribution Width 12.4 % (12.1-15.1); White Blood Count 14.93 10^3/uL (3.29-11.43)
[2025-03-15] VITALS: BP 109/73; PULSE 78; RESP 15; TEMP 36.6
[2025-03-15 04:00] VITALS: BP 99/72; PULSE 70; TEMP 36.6
[2025-03-15] MEDS: ibuprofen 800 mg tablet PO (08:54)
[2025-03-15] MEDS: PRENATAL VIT NO.130/IRON/FOLIC 1 EACH TABLET PO (08:54)
[2025-03-15] MEDS: docusate sodium 100 mg Capsule PO (08:54)
[2025-03-15 08:58] VITALS: BP 114/75; PULSE 88; RESP 16; TEMP 36.6
--- NOTE | 2025-03-15 09:35 | PM.OBGYDC ---
Discharge Providers [employer] Date of Admission: 03/14/25 03:57 Date of Discharge: 03/29/25 Attending Provider at Admission: Ricky Reece MD Attending Provider at Discharge: Ricky Reece MD Primary Care Provider: Lacy Rooney APN Diagnoses at Discharge Discharge Diagnosis (1) 39 weeks gestation of : Status: Resolved (2) Vaginal delivery: Status: Resolved (3) Positive GBS test: Status: Resolved Reason for Visit Reason for Visit: ctx Hospital Course Hospital Course The patient arrived to the hospital in active labor. While getting her epidural, she suddenly felt she had to push. She was laid down and almost immediately pushed out her baby. Her course was unremarkable. Her bleeding was within normal limits. She breast-fed well. Her pain was well-controlled. Information Peripartum Data: Infant Delivery Method: Vaginal Physical Exam Narrative: The patient is alert. She appears comfortable. Her heart has a regular rate and rhythm with no murmurs appreciated. Lungs are clear to auscultation bilaterally. Her fundus is firm and below the umbilicus. History History History 4 Term 2 0 Miscarriages/Ectopic 1 Living Children 2 Discharge Data Studies Completed and Pending Pending at discharge Category Date Time Status Antibody Identification Routine Lab 03/14/25 03:05 Results Complete Crossmatch Routine Lab 03/14/25 03:05 Results Rho D Immune Globulin Routine Lab 03/14/25 03:05 Results Type and Screen Routine Lab 03/14/25 03:05 Results Laboratory Results WBC 14.93 10^3/uL (3.29-11.43) H 03/14/25 19:39 RBC 3.28 10^6/uL (3.85-5.65) L 03/14/25 19:39 Hgb 9.60 g/dL (11.27-16.99) L 03/14/25 19:39 Hct 29.0 % (36-47) L 03/14/25 19:39 MCV 88.4 fl (85-98) 03/14/25 19:39 MCH 29.3 pg (27-33) 03/14/25 19:39 MCHC 33.1 g/dL (30-55) 03/14/25 19:39 RDW 12.4 % (12.1-15.1) 03/14/25 19:39 Plt Count 282 10^3/cmm (157-399) 03/14/25 19:39 MPV 9.9 fL (7.4-10.4) 03/14/25 19:39 Neut % (Auto) 75.5 % 03/14/25 03:05 Lymph % (Auto) 17.5 % 03/14/25 03:05 [place] % (Auto) 5.4 % 03/14/25 03:05 Eos % (Auto) 0.6 % 03/14/25 03:05 Baso % (Auto) 0.3 % 03/14/25 03:05 Neut # (Auto) 8.81 10^3/uL (1.8-7.7) H 03/14/25 03:05 Lymph # (Auto) 2.0 10^3/uL (0.8-4.8) 03/14/25 03:05 [place] # (Auto) 0.6 10^3/uL (0.2-0.9) 03/14/25 03:05 Eos # (Auto) 0.1 10^3/uL (0.0-0.8) 03/14/25 03:05 Baso # (Auto) 0.0 10^3/uL (0.0-0.1) 03/14/25 03:05 Nucleated RBC % (auto) 0 % 03/14/25 03:05 Nucleated RBCs # 0.0 /100WBC 03/14/25 03:05 Insulin-like GF I Positive 03/14/25 02:40 Urine Opiates Screen Negative ng/mL (Negative) 03/14/25 03:00 Ur Barbiturates Screen Negative ng/mL (Negative) 03/14/25 03:00 Ur Phencyclidine Scrn Negative ng/mL (Negative) 03/14/25 03:00 Ur Amphetamines Screen Negative ng/mL (Negative) 03/14/25 03:00 U Benzodiazepines Scrn Negative ng/mL (Negative) 03/14/25 03:00 Urine Cocaine Screen Negative ng/mL (Negative) 03/14/25 03:00 U Marijuana (THC) Screen Negative ng/mL (Negative) 03/14/25 03:00 Blood Type O Negative 03/14/25 03:05 Rho(D) Type Rh negative 03/14/25 03:05 Antibody Screen Positive 03/14/25 03:05 Antibody Identification Non-Specific Antibody Reation 03/14/25 03:05 Screen Negative (Negative) 03/14/25 19:39 Vitals Last Vital Signs Temp 98 F 03/15/25 08:58 Pulse 88 03/15/25 08:58 Resp 16 03/15/25 08:58 BP 114/75 03/15/25 08:58 Pulse Ox 100 03/14/25 06:19 O2 Del Method Room Air 03/14/25 16:22 Results Labs OB ([facility]): Blood Type O Negative 03/14/25 Antibody Screen Positive 03/14/25 Hct, (36-47) 29.0 % L 03/14/25 Hgb, (11.27-16.99) 9.60 g/dL L 03/14/25 Rho(D) Type Rh negative 03/14/25 Plt Count, (157-399) 282 10^3/cmm 03/14/25 Urine Opiates Screen, (Negative) Negative ng/mL 03/14/25 Ur Barbiturates Screen, (Negative) Negative ng/mL 03/14/25 Ur Phencyclidine Scrn, (Negative) Negative ng/mL 03/14/25 Ur Amphetamines Screen, (Negative) Negative ng/mL 03/14/25 U Benzodiazepines Scrn, (Negative) Negative ng/mL 03/14/25 Urine Cocaine Screen, (Negative) Negative ng/mL 03/14/25 U Marijuana (THC) Screen, (Negative) Negative ng/mL 03/14/25 Micro Urine Specimen 11/21/24 Discharge Plan Discharge Patient Disposition: Home Condition: Stable Prescriptions: New ibuprofen 800 mg Tablet 800 mg PO TID Qty: 45 0RF Continued capsule 1 cap PO DAILY Discharge Orders: Discharge Order (Routine); Ordered 03/15/25 Ordered By: Ricky Reece Referrals: Ricky Reece MD [Physician, Family Practice] - 6 Weeks Discharge Diet: Usual diet Discharge Activity: Limit activity as instructed Patient Instructions: Depression (DC), Opioid Safety (DC), Preeclampsia and Eclampsia After Delivery (GEN), Hemorrhage (DC), OB Discharge Report, OB Food/Drug Interaction Guide, OB Care at Home, Opioid Safety, OB Vaginal Deliveries, Abnormal Bleeding Discharge Attestations [employer] Time Spent in Discharge Care*: less than 30 min Status at Discharge: Cognitive status at discharge: cognitively intact, Behavioral status at discharge: cooperative, Coding Level of Care Code Acute Code for Chg Fwd Diagnoses 39 weeks gestation of Z3A.39 Vaginal delivery O80 Positive GBS test B95.1
[2025-03-15 11:17] VITALS: BP 101/64; PULSE 83; RESP 16; TEMP 36.8; O2SAT 99
[2025-03-15 11:19] VITALS: BP 101/64; PULSE 83; RESP 16; TEMP 36.8; O2SAT 99
[2025-03-15] MEDS: measles,mumps,rubella pf Vial (w/diluent) 0.5 ML SUBCUT (11:20)
== END 2025-03-15 11:29 | disposition home or self-care (01) | DRG 807 ==
LOC: OPOB 03-17 10:05
PROVIDERS: Admitting Provider Family Medicine; PCP Nurse Practitioner; Visit Provider Family Medicine
DX: O99.824 Streptococcus B carrier state complicating childbirth (principal); Z37.0 Single live birth; Z3A.39 39 weeks gestation of pregnancy
CPT/HCPCS: 36415; 36430; 59025; 59409; 80306; 80503; 84112; 85025; 85027; 85460; 86850; 86870; 86900; 90384; 90707; 96372; 99211; J0290; J2590; J7030; J7121; J9999

== ENCOUNTER 2025-03-27 12:55 | Outpatient (CLI) | payer MEDICAID, SELFPAY ==
--- NOTE | 2025-03-27 12:59 | MR_ITS ---
WS: [id number] MRI ADRENAL GLANDS WITH AND WITHOUT CONTRAST. COMPARISON: CT 03/13/2022 and ultrasound 07/16/2024 Multiplanar, multisequence imaging is performed with and without contrast. MultiHance 14 mL. Ill-defined mass involving the RIGHT adrenal gland of intermediate but mixed signal. Mass measures 4.7 x 1.9 cm. There is loss of the normal signal on the out of phase imaging suggesting predominantly fat component. No central enhancement on postcontrast imaging. There is mild peripheral enhancement. This is most consistent with an adrenal myelolipoma. Very similar in appearance and size to the study from 03/13/2022. Also corresponds to the echogenic mass seen on recent ultrasound. LEFT adrenal gland is normal. Contracted gallbladder. Liver and spleen are normal. No renal obstruction. No intrahepatic biliary duct dilatation. Normal pancreas. No ascites and no adenopathy. No pleural effusions. MR/MR adrenals wo/w con [id number] IMPRESSION: 1. RIGHT adrenal gland mass containing fat measures 4.7 x 1.9 cm. Stable in si ze since 03/13/2022 and consistent with an adrenal myolipoma. 2. Otherwise abdomen MRI is negative.
[2025-03-27] MEDS: gadobenate dimeglumine 20 mL vial 14 ML IV (13:57)
== END 2025-03-27 12:56 | disposition home or self-care (01) ==
PROVIDERS: PCP Family Medicine; Visit Provider Family Medicine
DX: E27.8 Other specified disorders of adrenal gland (principal)
CPT/HCPCS: 74183

== ENCOUNTER 2025-08-23 18:41 | Emergency (ER) | payer MEDICAID, SELFPAY ==
--- NOTE | 2025-08-23 18:48 | ECG_ITS ---
[facility] Date[facility] 2025-08-23 Pat Name: Kiersten Woods Department: Room: Gender: Female Computer Programming Manager: : 2000 Requested By: Kate Byrd Order Number: [id number] Guerda MD: Breezy Marcano M.D. Measurements Intervals [place] Rate: 76 P: 34 [place]: 129 QRS: 56 QRSD: 87 T: 28 QT: 373 QTc: 420 Interpretive Statements SINUS RHYTHM MINIMAL ST DEPRESSION [0.025+ mV ST DEPRESSION] Compared to ECG 05/05/2021 15:16:27 ST (T wave) deviation now present Sinus tachycardia no longer present T-wave abnormality no longer present Electronically Signed On 08-26-2025 19:32:26 CDT by Breezy Marcano M.D. [email or web address] [id number]
--- NOTE | 2025-08-23 18:48 | XRR_ITS ---
PROCEDURE INFORMATION: Exam: XR Chest Exam date and time: 08/23/2025 7:25 PM Age: 24 years old Clinical indication: Pain; Chest pressure; Additional info: Cp TECHNIQUE: Imaging protocol: Radiologic exam of the chest. Views: 1 view. COMPARISON: CR XR chest 1V portable [id number] 05/05/2021 12:58 PM FINDINGS: Lungs: Unremarkable. No consolidation. Pleural spaces: Unremarkable. No pleural effusion. No pneumothorax. Heart/Mediastinum: Unremarkable. No cardiomegaly. Bones/joints: Unremarkable. XR/XR chest 1V portable [id number] IMPRESSION: No acute findings.
[2025-08-23 18:54] VITALS: BP 100/68; PULSE 89; RESP 16; TEMP 37.1; O2SAT 99; BMI 28.3
--- NOTE | 2025-08-23 19:39 | USR_ITS ---
PROCEDURE INFORMATION: Exam: US Abdomen, Limited; Right Upper Quadrant Exam date and time: 08/23/2025 10:27 PM Age: 24 years old Clinical indication: Abdominal pain; Additional info: Ruq pain TECHNIQUE: Imaging protocol: Real time ultrasound of the abdomen with image documentation. Limited exam focused on the right upper quadrant. COMPARISON: 1. MR adrenals wo/w con [id number] 03/27/2025 1:21 PM 2. US abdomen limited [id number] 07/16/2024 6:25 AM FINDINGS: Liver: No mass within the liver. Liver measures 17 cm in length. Gallbladder: Normal. No gallstones. There is no gallbladder wall thickening. Biliary ducts: Normal. No stones. No dilation. Common bile duct measures 0.3 cm. Pancreas: Visualized pancreas is unremarkable. Adrenal glands: Ovoid echogenic 5.1 x 3.5 x 5.2 cm right suprarenal mass corresponds to an adrenal myelolipoma characterized on prior MRI. Right kidney: Normal. No mass. No hydronephrosis. 10.7 cm in length. Aorta: Mid aorta measures 1.2 cm. Inferior vena cava: Upper IVC measures 1.7 cm. Portal venous: Hepatopetal flow in the main portal vein. US/US gall bladder [id number] IMPRESSION: No acute findings.
[2025-08-23 20:02] LABS: Hematocrit 36.0 % (36-47); Hemoglobin 12.30 g/dL (11.27-16.99); Mean Corpuscular HGB Conc 34.2 g/dL (30-55); Mean Corpuscular Hemoglobin 28.6 pg (27-33); Mean Corpuscular Volume 83.7 fl (85-98); Nucleated Red Blood Cells % 0 %; Platelet Count 301 10^3/cmm (157-399); Red Blood Count 4.30 10^6/uL (3.85-5.65); White Blood Count 5.35 10^3/uL (3.29-11.43)
[2025-08-23 20:11] LABS: HCG, Serum Qual Negative (Negative)
[2025-08-23 20:18] LABS: Alanine Aminotransferase 11 U/L (0-33); Albumin Level 4.6 g/dL (3.5-5.2); Alkaline Phosphatase 83 U/L (35-105); Anion Gap 15.9 (5-19); Aspartate Amino Transferase 14 U/L (0-32); Blood Urea Nitrogen 15 mg/dL (6-20); Calcium 9.0 mg/dL (8.5-10.5); Carbon Dioxide 25 mmol/L (22-29); Chloride 101 mmol/L (98-107); Creatinine Clr Calc Pharmacy 104.8768; Globulin 2.9 g/dL (1.3-4.6); Glucose 77 mg/dL (65-115); Lipase 27 U/L (13-60); Osmolality Calculated 286 mOsm/kg (285-295); Potassium 3.9 mmol/L (3.5-5.1); Sodium 138 mmol/L (136-145); Total Protein 7.5 g/dL (6.6-8.7)
[2025-08-23 20:19] LABS: Glucose Urine UA Negative (Normal); Nitrate Urine Negative (Negative); Specific Gravity, Urine 1.009 (1.005-1.030)
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
[2025-08-23 20:59] LABS: UA Manual Slide Review YES
[2025-08-23 21:00] VITALS: BP 106/71; PULSE 88; O2SAT 100
[2025-08-23 21:00] LABS: Add Urine Microscopic? YES
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
== END 2025-08-23 23:22 | disposition home or self-care (01) ==
PROVIDERS: Emergency Medicine; Emergency Provider Physician Assistant; PCP Family Medicine
DX: K80.50 Calculus of bile duct without cholangitis or cholecystitis without obstruction (principal); Z87.891 Personal history of nicotine dependence
CPT/HCPCS: 36415; 71045; 76705; 80053; 81001; 83690; 84703; 85025; 93005; 99285

== ENCOUNTER 2025-10-15 07:48 | Outpatient (CLI) | payer MEDICAID, SELFPAY ==
--- NOTE | 2025-10-15 08:00 | NM_ITS ---
WS: [id number] NUCLEAR MEDICINE HIDA SCAN WITH GALLBLADDER EJECTION FRACTION HISTORY: biliary dyskinesia COMPARISON: Gallbladder ultrasound 08/23/2025 TECHNIQUE: The patient was intravenously injected with 8.1 mCi of TC99m Mebrofenin. Immediate imaging over the right upper quadrant was followed by 5 minute image and additional images for a total of 60 minutes. Normal uptake of radiotracer throughout the liver. Activity identified in the gallbladder at 15 minutes and well distended by 60 minutes. Activity in the proximal small bowel was seen by 60 minutes. Good washout of the radiotracer from the liver by 60 minutes. The patient then drank 8 ounces of Ensure Plus. Ejection fraction at 60 minutes was 69%. Normal GB ejection fraction is 35-75%. Post fatty meal symptoms: None. NM/NM hepatobiliary w phar* [id number] IMPRESSION: 1. Normal HIDA scan. 2. Normal gallbladder ejection fraction.
== END 2025-10-15 07:49 | disposition home or self-care (01) ==
LOC: RAD 07:50
PROVIDERS: PCP Family Medicine; Visit Provider Surgery
DX: K82.8 Other specified diseases of gallbladder (principal)
CPT/HCPCS: 78227; A9537